=== PATIENT | female | born 1990 | race Caucasian/White ===

== ENCOUNTER 2021-05-13 17:13 | Emergency (ER) | payer MEDICAID ==
[~2021-05-13] VITALS: Ht 165.1 cm; Wt 63.6 kg
[2021-05-13 20:40] LABS: COLLECTION METHOD CLEAN CATCH
[2021-05-13 20:47] LABS: MUCOUS Present (NOT PRESENT); PH 6 (5-8); URINE APPEARANCE Hazy (CLEAR/HAZY); URINE BACTERIA Moderate (NONE SEEN); URINE BILIRUBIN Negative (NEGATIVE); URINE BLOOD Negative (NEGATIVE); URINE COLOR Yellow (YELLOW); URINE GLUCOSE Negative (NEGATIVE); URINE KETONE Trace (NEGATIVE); URINE LEUKOCYTE ESTERASE 1+ (NEGATIVE); URINE NITRATE Negative (NEGATIVE); URINE PROTEIN(semi-quant) Negative (NEGATIVE); URINE RBC 0-2 /hpf (0-2); URINE UROBILINOGEN >=4.0 mg/dL (NEGATIVE)
[2021-05-13] MEDS ORDERED: CEFTIN500 MG PO (22:10)
[2021-05-13 22:35] VITALS: BP 110/69; PULSE 104; TEMP 98.7
== END 2021-05-13 22:36 | disposition home or self-care (01) ==
LOC: COL.ER 17:13
PROVIDERS: Nurse Practitioner
DX: N39.0 Urinary tract infection, site not specified (principal); Z20.822 Contact with and (suspected) exposure to COVID-19
CPT/HCPCS: J1885; J7030

== ENCOUNTER 2022-08-20 07:32 | Inpatient (IN) | payer MEDICAID ==
[~2022-08-20] VITALS: Ht 165.1 cm; Wt 74.7 kg
[~2022-08-20 07:32] MED LIST: CEFTIN500 MG PO
[2022-08-20 08:36] LABS: HEMATOCRIT 38.4 % (37.0-47.0); HEMOGLOBIN 13.8 g/dl (12.5-16.0); MEAN CELL VOLUME 84 fl (80.0-100.0); MEAN CORPUSCULAR HEMOGLOBIN 30 pg (27-31); MEAN CORPUSCULAR HGB CONC 36 g/dl (33.0-37.0); MEAN PLATELET VOLUME 9.5 fl (7.4-10.4); PLATELET COUNT 287 K/mm3 (130-400); RED BLOOD COUNT 4.57 M/mm3 (4.10-5.30); REDCELL DISTRIBUTION WIDTH-CV 11.9 % (11.5-14.5)
[2022-08-20 08:45] LABS: COLLECTION METHOD CLEAN CATCH
[2022-08-20 09:00] LABS: URINE BACTERIA Occasional /hpf (NONE SEEN)
[2022-08-20 09:03] LABS: URINE APPEARANCE Cloudy (CLEAR/HAZY); URINE COLOR Yellow (YELLOW); URINE GLUCOSE Negative (NEGATIVE); URINE KETONE 1+ (NEGATIVE); URINE NITRATE Positive (NEGATIVE); URINE PROTEIN(semi-quant) 2+ (NEGATIVE)
[2022-08-20 09:04] LABS: URINE BLOOD 1+ (NEGATIVE)
[2022-08-20 09:10] LABS: BILIRUBIN,TOTAL 0.7 mg/dL (0.2-1.2); C-REACTIVE PROTEIN 31.97 mg/dL (0.00-0.50); CALCIUM 8.9 mg/dL (8.4-10.2); CREATININE, serum 0.82 mg/dL (0.57-1.11); POTASSIUM 3.4 mmol/L (3.5-4.5); TOTAL PROTEIN 7.5 gm/dL (6.2-8.1)
[2022-08-20 09:20] LABS: BAND 5 % (0-10); BASOPHIL 1 % (0-2); LYMPHOCYTE 7 % (20.0-51.0); NEUTROPHILS 77 % (42.0-75.2)
[2022-08-20 09:21] LABS: BURR CELLS 1+; PLATELET ESTIMATE NORMAL (NORMAL)
[2022-08-20] MEDS ORDERED: KEPPRA750 MG PO (12:50)
--- NOTE | 2022-08-20 13:40 | NUR ---
Pt admitted to room 342 from ED. Is A&O x 4, VSS, afebrile, denies N/V at this time. Reports pain to R flank/abdomen 12/02, pt given PO [place] per PRN order. Lungs CTA, BS x 4, reports diarrhea early this AM prior to ED visit. Ambulates under own power, without difficulty. IV RAC, fluids started infusing per order.
[2022-08-20 13:48] VITALS: BP 117/68; PULSE 108; TEMP 98.9
--- NOTE | 2022-08-20 14:28 | NUR ---
Notified Dr. Fernandez of pt arrival.
[2022-08-20 15:48] VITALS: BP 108/69; PULSE 108; TEMP 99.9
--- NOTE | 2022-08-20 16:05 | NUR ---
Contact Dr. Fernandez. Inform of pt increased pain, 02/02 to R flank/back and low-grade temp 99.9F. New orders for IV morphine and toradol. Pain well controlled on IV meds, pain 06/04, pt resting comfortably.
[2022-08-20 19:22] VITALS: BP 108/71; PULSE 98; TEMP 98
[2022-08-20 23:28] VITALS: BP 117/71; PULSE 112; TEMP 103; TEMP 97.5
--- NOTE | 2022-08-21 01:39 | NUR ---
SHIFT REPORT FROM FIFI SOLANO. PATIENT IN BED ON ROOM ENTRY. HS MEDS PER EMAR. PRN NORCO AND MORPHINE FOR PAIN. PATIENT HAD FEVER AROUND MIDNIGHT AND PRN TYLENOL WAS GIVEN AND JOSIAH ALEXANDER WAS NOTIFIED. IVF INFUSING TO L AC IV. DENIES ADDITIONAL NEEDS. CALL LIGHT IN REACH.
[2022-08-21 05:27] VITALS: BP 113/77; PULSE 95; TEMP 100.3
[2022-08-21 07:00] LABS: BASO # 0.1 K/mm3 (0.0-0.2); BASO % 0.5 % (0.0-2.0); EOS % 0.1 % (0.0-4.0); GRAN # 6.7 K/mm3 (1.4-6.5); GRAN % 73.2 % (42.2-75.2); LYMPH % 10.7 % (20.0-51.0); MEAN CELL VOLUME 88 fl (80.0-100.0); MEAN CORPUSCULAR HGB CONC 34 g/dl (33.0-37.0); MEAN PLATELET VOLUME 9.7 fl (7.4-10.4); MONO # 1.3 K/mm3 (0.1-0.6); MONO % 14.7 % (1.7-9.3); PLATELET COUNT 278 K/mm3 (130-400); RED BLOOD COUNT 3.99 M/mm3 (4.10-5.30); REDCELL DISTRIBUTION WIDTH-CV 12.2 % (11.5-14.5)
[2022-08-21 07:06] LABS: HEMOGLOBIN 11.8 g/dl (12.5-16.0); MEAN CORPUSCULAR HEMOGLOBIN 30 pg (27-31)
[2022-08-21 07:11] LABS: CREATININE, serum 0.75 mg/dL (0.57-1.11); POTASSIUM 3.1 mmol/L (3.5-4.5)
[2022-08-21 08:33] VITALS: BP 120/58; PULSE 77; TEMP 99.9
--- NOTE | 2022-08-21 09:13 | NUR ---
PATIENT ALERT AND ORIENTED X4. VSS. PATIENT HERE FOR PYELONEPHRITIS. PATIENT REPORTS PAIN 9/10, REQUESTS PAIN MEDICATION. IV TO LEFT AC WITH NS RUNNING AT 125ML/HOUR AND ZOSYN. PATIENT RESTING IN BED WITH CALL LIGHT NEAR.
[2022-08-21 12:29] VITALS: BP 125/60; PULSE 93; TEMP 98.9
--- NOTE | 2022-08-21 12:56 | NUR ---
Nurse Outreach Case Manager met with patient to discuss discharge planning. Patient is from [place] and has been living with her father, Nima (ph#[phone]) and her son who is 13 years old. Patient is in [place] visiting her boyfriend, Candace and advised she is in the process of moving here. Patient does not have a primary care physician established here yet. Patient does not use any DME and is independent with [employer]. Patient does not have DPOA-HC. Patient is not and has no adult children. Father, Nima is legal next of kin. Patient plans to return to Candace's home at time of discharge. Discharge Plan: Home
[2022-08-21 16:25] VITALS: BP 147/67; PULSE 101; TEMP 98.6
[2022-08-21 19:25] VITALS: BP 91/60; PULSE 92; TEMP 98.7
--- NOTE | 2022-08-21 21:09 | NUR ---
SHIFT REPORT FROM VENICE SOLANO. PATIENT IN BED ON ROOM ENTRY. ALERT AND ORIENTED. HS MEDS PER EMAR. C/O INCREASED PAIN /10 TO R ABD AND PRN MORPHINE GIVEN. IV FLUIDS AND ABX INFUSING TO LAC IV WITHOUT ISSUE. DENIES ADDITIONAL NEEDS AT THIS TIME. CALL LIGHT IN REACH.
[2022-08-21 23:54] VITALS: BP 96/66; PULSE 96; TEMP 98.7
[2022-08-22 04:57] VITALS: BP 108/67; PULSE 94; TEMP 100
[2022-08-22 07:04] LABS: BASO # 0.1 K/mm3 (0.0-0.2); BASO % 0.6 % (0.0-2.0); EOS # 0.1 K/mm3 (0.0-0.7); EOS % 0.6 % (0.0-4.0); GRAN # 6.1 K/mm3 (1.4-6.5); GRAN % 73.3 % (42.2-75.2); HEMOGLOBIN 12.1 g/dl (12.5-16.0); LYMPH # 1.3 K/mm3 (1.2-3.4); MEAN CELL VOLUME 86 fl (80.0-100.0); MEAN CORPUSCULAR HEMOGLOBIN 30 pg (27-31); MEAN CORPUSCULAR HGB CONC 35 g/dl (33.0-37.0); MEAN PLATELET VOLUME 9.7 fl (7.4-10.4); MONO # 0.7 K/mm3 (0.1-0.6); MONO % 8.5 % (1.7-9.3); RED BLOOD COUNT 4.01 M/mm3 (4.10-5.30); REDCELL DISTRIBUTION WIDTH-CV 12.4 % (11.5-14.5)
[2022-08-22 07:13] LABS: HEMATOCRIT 34.6 % (37.0-47.0)
[2022-08-22 07:15] LABS: CALCIUM 8.2 mg/dL (8.4-10.2); CREATININE, serum 0.73 mg/dL (0.57-1.11); POTASSIUM 3.2 mmol/L (3.5-4.5)
--- NOTE | 2022-08-22 07:15 | NUR ---
PATIENT AWAKE AND ALERT, RESTING IN BED. PATIENT MOANING AND GROANING ON ASSESSMENT, STATING SHE IS STILL HAVING R SIDED FLANK PAIN 10/10. PAIN MEDICATIONS GIVEN. CALL LIGHT WITHIN REACH.
[2022-08-22 07:26] VITALS: BP 112/68; PULSE 82; TEMP 99.5
[2022-08-22 07:30] LABS: PLATELET COUNT 313 K/mm3 (130-400)
--- NOTE | 2022-08-22 09:58 | NUR ---
Initial visit; Patient thanked Technical Illustrator of looking in on her and offering God's blessings. Technical Illustrator will return to check on Vielka.
[2022-08-22 12:03] VITALS: BP 110/60; PULSE 88; TEMP 98.8
[2022-08-22 15:36] VITALS: BP 134/48; PULSE 52; TEMP 99.6
[2022-08-22 19:05] VITALS: BP 121/74; PULSE 92; TEMP 98.2
--- NOTE | 2022-08-22 22:49 | NUR ---
SHIFT REPORT FROM ALESSANDRA SOLANO. PATIENT IN BED ON ROOM ENTRY. ALERT AND ORIENTED X4. HS MEDS PER EMAR. C/O INCREASED PAIN AND PAIN MEDS PER EMAR. IVF TO L AC AND INTERMITTENT ZOSYN INFUSING. DENIES NAUSEA. CALL LIGHT IN REACH.
[2022-08-23] VITALS (7 sets, daily range): BP systolic 110–164; BP diastolic 58–80; PULSE 74–102; TEMP 98.1–100.2
[2022-08-23 07:00] LABS: BASO # 0.1 K/mm3 (0.0-0.2); BASO % 0.7 % (0.0-2.0); EOS % 0.5 % (0.0-4.0); GRAN # 5.2 K/mm3 (1.4-6.5); GRAN % 70.8 % (42.2-75.2); LYMPH # 1.3 K/mm3 (1.2-3.4); LYMPH % 17.1 % (20.0-51.0); MEAN CELL VOLUME 88 fl (80.0-100.0); MEAN CORPUSCULAR HGB CONC 33 g/dl (33.0-37.0); MEAN PLATELET VOLUME 9.3 fl (7.4-10.4); MONO # 0.7 K/mm3 (0.1-0.6); MONO % 9.5 % (1.7-9.3); PLATELET COUNT 296 K/mm3 (130-400); RED BLOOD COUNT 3.03 M/mm3 (4.10-5.30); REDCELL DISTRIBUTION WIDTH-CV 12.6 % (11.5-14.5)
[2022-08-23 07:05] LABS: HEMATOCRIT 26.8 % (37.0-47.0); HEMOGLOBIN 8.9 g/dl (12.5-16.0); MEAN CORPUSCULAR HEMOGLOBIN 29 pg (27-31)
--- NOTE | 2022-08-23 07:10 | NUR ---
Shift report received from the night nurseJanina RN.
[2022-08-23 07:24] LABS: CALCIUM 7.4 mg/dL (8.4-10.2); CREATININE, serum 0.57 mg/dL (0.57-1.11)
[2022-08-23 07:27] LABS: POTASSIUM 2.6 mmol/L (3.5-4.5)
--- NOTE | 2022-08-23 07:28 | NUR ---
Notified primary nurse XIOMARA Beauchamp of patients potassium
--- NOTE | 2022-08-23 08:09 | NUR ---
Patient resting in bed with facial grimace c/o severe pain at right flank and rated pain level 8/10. Morphine administered. Dr. Jim Rhodes gave a verbal order to keep patient on NPO status due spike of fever. Patient informed of NPO status and verbalized understanding. Patient reports of generalized edema, this nurse noted some swelling on bilateral extremities during assessment.
--- NOTE | 2022-08-23 10:19 | NUR ---
Attempted to call Dr. Arreguin for urology consult, unable to reach provider, and voice message and phone number left to call back.
--- NOTE | 2022-08-23 10:29 | NUR ---
Voice message and phone number left for BENJAMIN Mortensen to call back.
--- NOTE | 2022-08-23 11:36 | NUR ---
This nurse called to follow up on the time for patient's CT. Nurse was informed that patient's CT scan will be performed around [id number].
--- NOTE | 2022-08-23 14:30 | NUR ---
Patient declined for nurse to administered ducolax suppository and, states "I will insert the medication myself". Medication given to patient for self administration.
--- NOTE | 2022-08-23 18:35 | NUR ---
Patient eating full liquid meal and in no any distress. Patient states right flank pain has minimized and rated pain level 2/10. Patient reminded of NPO status after midnight for possible surgery tomorrow. Patient verbalized understanding.
--- NOTE | 2022-08-23 20:40 | NUR ---
PT IN BED, IS ALERT AND ORIENTED X4. HAS IVF TO LAC INFUSING WITHOUT REDNESS OR SWELLING. REPORTS RT ABD PAIN, NORCO GIVEN WITH HS MEDS. POTASSIUM=3.2, WILL GET 3 DOSES OF EFFER K TONIGHT, FIRST DOSE GIVEN NOW. PT HAS VISITOR AT THIS TIME. INDEPENDENT IN ROOM.
--- NOTE | 2022-08-23 22:37 | NUR ---
PT REPORTS PAIN TO RT ABD, MORPHINE 4MG IVP GIVEN. 2ND DOSE OF EFFER K GIVEN.
[2022-08-24] VITALS (13 sets, daily range): BP systolic 111–133; BP diastolic 66–91; PULSE 75–97; TEMP 97.9–99.4
--- NOTE | 2022-08-24 00:33 | NUR ---
PT ASKING FOR TORADOL, TOO EARLY. GIVEN NORCO PO WITH SIP OF WATER. IS NPO FOR POSSIBLE SURGERY IN AM. LAST DOSE OF POTASSIUM EFFERVESCENT GIVEN.
--- NOTE | 2022-08-24 01:08 | NUR ---
TORADOL 15MG IVP GIVEN FOR RT ABD PAIN.
--- NOTE | 2022-08-24 03:00 | NUR ---
MORPHINE 4MG IVP GIVEN FOR ABD PAIN.
--- NOTE | 2022-08-24 06:02 | NUR ---
PT MEDICATED WITH MORPHINE 4MG IVP FOR ABD PAIN.
[2022-08-24 07:16] LABS: BILIRUBIN,TOTAL 0.6 mg/dL (0.2-1.2); CALCIUM 8.1 mg/dL (8.4-10.2); CREATININE, serum 0.64 mg/dL (0.57-1.11); POTASSIUM 3.9 mmol/L (3.5-4.5); TOTAL PROTEIN 5.8 gm/dL (6.2-8.1)
--- NOTE | 2022-08-24 10:09 | NUR ---
CONSENT SIGNED, PT TO SURGERY AT THIS TIME.
--- NOTE | 2022-08-24 13:02 | NUR ---
PT TO ROOM 342 PER BED WITH REPORT FROM KEENA SOLANO PACU @[id number]. PT IS A/O X4. BANDAIDS TO ABD CDI. PT RATED PAIN AT 5/10. PT DROWSEY AT THIS TIME.
--- NOTE | 2022-08-24 20:08 | NUR ---
PT ASKING FOR PAIN MEDS FOR INCISIONAL PAIN. MEDICATED WITH NORCO 1 TAB PO AT THIS TIME. HAS IVF TO LAC INFUSING WITHOUT PROBLEM. LAP SITES X4 WITH DRY BANDAIDS, ACTIVE BS. INDEPENDENT IN ROOM.
--- NOTE | 2022-08-24 23:38 | NUR ---
PT ASKING FOR PAIN MEDS. NORCO GIVEN. ENCOURAGED PT TO AMBULATE IN HALLWAYS.
--- NOTE | 2022-08-24 23:45 | NUR ---
PT OUT AMBULATING IN HALLWAYS, IN NO APPARENT DISTRESS. ASKS FOR TEA AND WATER. GAIT STEADY.
[2022-08-25 03:05] VITALS: BP 133/88; PULSE 65; TEMP 98.2
--- NOTE | 2022-08-25 04:24 | NUR ---
PT ASKING FOR PAIN MEDS. REPORTS FEELING BETTER. IVF TO LAC INFUSING WITHOUT PROBLEM.
[2022-08-25 07:51] VITALS: BP 139/90; PULSE 59; TEMP 98.5
--- NOTE | 2022-08-25 09:26 | NUR ---
PT UP TO BR WITH SBA, A/O X4. LAP SITES CDI, PAIN WELL CONTROLLED WITH PO MEDS EATING AND DRINKING NO NAUSEA OR VOMITING REPORTED,
[2022-08-25] MEDS ORDERED: MIRALAX PA17 GM/Dose PO (09:28)
[2022-08-25] MEDS ORDERED: [UNRECOGNIZED DRUG - OTHER] PO (09:28)
[2022-08-25] MEDS ORDERED: LEVAQUIN 750MG750 M1 PO (09:30)
[2022-08-25] MEDS ORDERED: NORCO 325 MG-51 TAB PO (10:28)
--- NOTE | 2022-08-25 11:05 | NUR ---
DISCHARGE INSTRUCTIONS REVIWED WITH PT. QUESTIONS ANSWERED. PT LEFT UNIT AMBULATORY. INT DISCONTINUED.
== END 2022-08-25 11:08 | disposition home or self-care (01) | DRG 988 ==
LOC: COL.ER 07:32 → SURG 13:15
PROVIDERS: Emergency Medicine; Surgery; ADMIT Internal Medicine
PROC: 8E0W4CZ Robotic Assisted Procedure of Trunk Region, Percutaneous Endoscopic Approach (ICD-10-PCS; 2022-08-24)
PROC: 0FT44ZZ Resection of Gallbladder, Percutaneous Endoscopic Approach (ICD-10-PCS; principal; 2022-08-24 11:00)
DX: N12 Tubulo-interstitial nephritis, not specified as acute or chronic (principal); K81.0 Acute cholecystitis; B96.20 Unspecified Escherichia coli [E. coli] as the cause of diseases classified elsewhere; D64.9 Anemia, unspecified; E87.6 Hypokalemia; R11.2 Nausea with vomiting, unspecified; G47.00 Insomnia, unspecified; G40.909 Epilepsy, unspecified, not intractable, without status epilepticus; F17.210 Nicotine dependence, cigarettes, uncomplicated; Z79.899 Other long term (current) drug therapy
CPT/HCPCS: OP; G0378; J0696; J1100; J1170; J1200; J1885; J2250; J2270; J2405; J2543; J2704; J3010; J3480; J7030; J7040; Q9967